=== PATIENT | male | born 1995 | race Caucasian/White ===

== ENCOUNTER 2016-06-17 17:30 | Inpatient (IN) | payer OTHER ==
--- NOTE | ~2016-06-17 | IDS ---
Interim Discharge Summary [facility] [address] [place]. [address] NAME: QIANA JACKSON : [birth year] STATUS : ADM IN [facility]#: [id number] AGE: 20 ADM/REG DATE : 06/17/16 MR#: [id number] REPORT SERV DATE: 06/20/16 DICTATED BY: MOIRA MONTIEL DATE: 06/20/16 REPORT STATUS : Draft TRANSCRIBED BY: MODL DATE: 06/20/16 ADMISSION DATE: 06/17/2016 DISCHARGE DATE: REASON FOR ADMISSION: Direct admission by Dr. Johnson's office for concern for possible urosepsis. HISTORY OF PRESENT ILLNESS: Please refer to my H and P on 06/17/2016 for complete details on the patient's admission. In brief, the patient was admitted as a direct admission for evaluation for urosepsis. HOSPITAL COURSE: The patient had uncomplicated hospital course. 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 The patient, finally was able to get a followup appointment with Dr. Johnson who evaluated him and was concerned for a concern for developing urosepsis, and the patient was admitted directly for management and evaluation for this issue. On the day of admission, the patient was nontoxic appearing and I did not have any labs or vitals. I decided to hold any antibiotics until further data could justify the use of antibiotics. Routine labs did not show any concern for infection. However, CT scan of his abdomen and pelvis showed severe cystitis. Given the findings of the CAT scan along with his concerns for foul- smelling urine and concentrated urine, the decision was made to go ahead and treat with IV antibiotics. Urine culture has so far grown out over 100,000 colonies gram-negative bacilli. He does have a significant history of colonization of Pseudomonas that was susceptible to Zosyn. He has been on Zosyn now for three days. We are waiting for final urine cultures and we will also test him for fosfomycin. He has been afebrile without leukocytosis. He has been requesting IV Dilaudid every day and I have been declining his request. He has been having multiple bowel movements secondary to aggressive bowel regimen with Movantik, Dulcolax, Colace, and MiraLAX. We are going to start backing off on that, but we will continue his Movantik and Colace. Follow disposition per Dr. Victor, who will assume care of this patient on 06/21. However, anticipate discharging the patient home soon once we have the final urine culture result. INTERIM DIAGNOSES: 1. Severe cystitis on CT scan. 2. Probable complicated urinary tract infection secondary to self catheterization from a neurogenic bladder. 3. Constipation, likely opioid induced. 4. Chronic pain, dependent on narcotics. 5. Nausea, now resolved. 6. Cerebral palsy. PROCEDURES: Include CT scan of the abdomen and pelvis with IV contrast. Interim Discharge Summary [address] [address] NAME: QIANA JACKSON : [birth year] STATUS : ADM IN [facility]#: [id number] AGE: 20 ADM/REG DATE : 06/17/16 MR#: [id number] REPORT SERV DATE: 06/20/16 DICTATED BY: MOIRA MONTIEL DATE: 06/20/16 REPORT STATUS : Draft TRANSCRIBED BY: JOSE DATE: 06/20/16 JEFERSON/JOSE Moira Montiel MD / [id number] CC: Miora Montiel MD Daily,Ryan
--- NOTE | ~2016-06-17 | DS ---
Discharge Summary [facility] [address] [place]. [address] NAME: QIANA JACKSON : [birth year] STATUS : DIS IN PAT#: [id number] AGE: 20 ADM/REG DATE : 06/17/16 MR#: [id number] REPORT SERV DATE: 06/23/16 DICTATED BY: ISI DOLAN DATE: 06/22/16 REPORT STATUS : Draft TRANSCRIBED BY: JOSE DATE: 06/22/16 ADMISSION DATE: 06/17/2016 DISCHARGE DATE: 06/22/2016 DIAGNOSES: 1. Severe cystitis. 2. Urinary tract infection with chronic self-catheterization. 3. Opioid-induced constipation. 4. Pain management, chronic. 5. History of cerebral palsy. FOLLOWUP: The patient is to follow up with the primary care physician in one week for repeat urinalysis. HOSPITALIST: Dr. Sunil Montiel and Dr. Dolan. DISCHARGE MEDICATION: Bisacodyl 5 mg p.o. daily p.r.n., Valium 10 mg p.o. b.i.d. per home dose, Movantik 25 mg p.o. daily, Lyrica 200 mg p.o. b.i.d., Florastor one cap p.o. b.i.d., Dilaudid 4 mg p.o. t.i.d. p.r.n., Bactrim DS one tab p.o. b.i.d. for five days, and fosfomycin 3 g p.o. daily for one dose. Please refer to discharge MAR for further details. HOSPITAL COURSE: Please see H and P and interim summary per Dr. Sunil Montiel. This is a 20 years old male with a past medical history of cerebral palsy but very functional with also history of recurrent urinary tract infections with self-catheterization. The patient was directly admitted from primary care's office for suspected sepsis secondary to urinary tract infection. The patient was found to have a complicated urinary tract infection. He was admitted to the Hospitalist Service, initially seen by Dr. Sunil Montiel. He was treated for opioid induced constipation and was treated with Movantik and stool softeners by Dr. Montiel, who also wrote a prescription for Movantik due to the patient's good response to treatment. He was found to have a complicated urinary tract infection with cystitis, had findings of ESBL and Providencia in the urine. Blood cultures were no growth to date. Also, the patient was continued on probiotic. The pharmacy performed sensitivities, found the patient to be sensitive to fosfomycin, therefore, the patient was transitioned off IV antibiotics to oral with fosfomycin for which he will receive one dose since the patient has completed a five day treatment of IV antibiotics and also we will continue with oral Bactrim for completion of urinary tract infection treatment. According to the patient's mother, the patient does not have any history of allergies to sulfa. The patient and mother were informed to follow up with the primary care physician for repeat urinalysis after completion of antibiotics. The patient was discharged home in stable condition to follow up as an outpatient. [facility] Discharge Summary [address] [address] NAME: QIANA JACKSON : [birth year] STATUS : DIS IN PAT#: [id number] AGE: 20 ADM/REG DATE : 06/17/16 MR#: [id number] REPORT SERV DATE: 06/23/16 DICTATED BY: ISI DOLAN DATE: 06/22/16 REPORT STATUS : Draft TRANSCRIBED BY: JOSE DATE: 06/22/16 Isi Dolan M.D. / [id number] CC: Gregg Huggins M.D.
--- NOTE | ~2016-06-17 | HP ---
History And Physical [facility] [address] [facility] [place]. [address] NAME: JUAN M JACKSON : [birth year] STATUS : ADM IN [facility]#: [id number] AGE: 20 ADM/REG DATE : 06/17/16 MR#: [id number] REPORT SERV DATE: 06/17/16 DICTATED BY: MOIRA MONTIEL DATE: 06/17/16 REPORT STATUS : Draft TRANSCRIBED BY: MODDouglas DATE: 06/17/16 DATE OF ADMISSION: 06/17/2016 REASON FOR ADMISSION: Direct admission from Dr. Johnson's office for concern for sepsis secondary to urinary tract infection. CHIEF COMPLAINT: "My urine has been foul smelling and burning." HISTORY OF PRESENT ILLNESS: A 20-year-old white male with a history of cerebral palsy, well known to the Hospitalist Service as he has had multiple numerous admissions for presumed urinary tract infection along with abdominal pain secondary to constipation. The patient had finally followed up with his PCP Dr. Johnson in the clinic today. His care is being mostly handled by his grandfather now as his grandmother is not well. Grandfather said that they stopped doing self-catheterizations because he was instructed to from previous physician; however, the patient and the grandfather noted that Juan M's urine was foul smelling and Juan M admitted to burning sensation which is new for him. He denies any fever or chills. He has not had a bowel movement within a week. His grandfather said that he had a couple doses of Dulcolax which seemed to help a little bit. The patient is complaining of abdominal pain. The patient requested to speak to me privately, and when I excused the grandfather from the room his question was if he could have any IV Dilaudid and I made it clear to him that we will not be giving him IV pain medicine, but we will be happy to continue his home regimen of oral Dilaudid. We can accommodate him by giving him some IV antiemetics if needed and he was agreeable to that plan. REVIEW OF SYSTEMS: As per HPI. Otherwise, 10-point system were reviewed and are negative. PAST MEDICAL HISTORY: Cerebral palsy; paraplegia, using a wheelchair; recurrent UTI with chronic Pseudomonas colonization; neurogenic bladder, off and on self catheterization; history of chronic bilateral hydronephrosis; Clostridium difficile colitis; bladder stones; reflux; narcotic-induced constipation; chronic pain, dependent on narcotics. PAST SURGICAL HISTORY: Suprapubic catheter insertion and removal, colostomy reversal, intact rectal surgery, multiple back surgeries, eye and ear surgery, right femoral fracture. SOCIAL HISTORY: Occasional cigarette smoking. Lives with his grandparents. No alcohol or illicit drug use. ALLERGIES: TO MORPHINE, LEVAQUIN, AND LATEX. MEDICATIONS: Dulcolax 5 mg p.r.n. constipation, Valium 10 mg twice a day, Dilaudid 4 mg three times a day p.r.n., Lyrica 200 mg twice a day. FAMILY HISTORY: Grandfather has hypertension. PHYSICAL EXAMINATION: History And Physical [address] [address] NAME: JUAN M JACKSON : [birth year] STATUS : ADM IN [facility]#: [id number] AGE: 20 ADM/REG DATE : 06/17/16 MR#: [id number] REPORT SERV DATE: 06/17/16 DICTATED BY: MOIRA MONTIEL DATE: 06/17/16 REPORT STATUS : Draft TRANSCRIBED BY: JOSE DATE: 06/17/16 VITAL SIGNS: Pending. GENERAL: The patient is nontoxic, pleasant, cooperative, in no acute distress, alert and oriented x3. HEENT: Normocephalic and atraumatic head. Extraocular muscles are intact. Oropharynx is clear. No scleral icterus. CARDIAC: Regular rhythm. No murmurs, rubs, or gallops. PULMONARY: Clear to auscultation bilaterally. No wheezes, rhonchi, or crackles. ABDOMEN: Soft, nondistended. Positive bowel sounds. There is a wound overlying around the periumbilical area which has been there for about four months. SKIN: Warm and dry. MUSCULOSKELETAL: He does have some chronic contractures of his lower extremities. NEUROLOGICAL: He is paraplegic. PSYCHIATRIC: The patient is cooperative. Mood is appropriate. SKIN: Warm and dry. LABORATORY DATA: Pending. IMPRESSION: 1. Presumed complicated urinary tract infection secondary to self-catheterization, neurogenic bladder. 2. Chronic pain, dependent on narcotics. 3. Opioid-induced constipation. 4. Cerebral palsy. 5. Neurogenic bladder. PLAN: Plan is to do IV fluids. We will obtain a CBC, CMP, urinalysis, and culture, procalcitonin and lactic acid, aggressive laxatives. Given the patient that the patient has frequent admissions with colonized UTIs and is nontoxic appearing, we will hold off on antibiotics until we have further data to support the diagnosis of urinary tract infection, but of course, the patient decompensates, and we will start him on broad-spectrum IV antibiotics. JEFERSON/JOSE Moira Montiel MD / [id number] CC: MD Ryan Merlos MD
[~2016-06-17 17:30] MED LIST: AUG875 PO; AZO-TABS95 MG PO; BACDS PO; BACLOFEN20 MG PO; BEN25 PO; BENADRYL 50 MG50 MG PO; BIST PO; CEFT2 PO; CEFT5 PO; CONSTULOSE PO; CORTEF20 MG; CORTISPORIN11 OT; DIL2TAB; DIL2TAB PO; DIL4TAB PO; DILAUDID8 MG PO; DITRO5 PO; DOCUSOFT S100 MG PO; DSS PO; DULCOLAX STOOL100 MG PO; DURA25 TOP; ENDOCET1 TA3 PO; ENULOSE PO; EX-LAX PO; FLORASTOR250 MG PO; ICY HOT OINTMENT TOP; ICY HOT16 % TOP; INVANZ1 GM IV; LYRICA100 MG PO; LYRICA150 MG PO; LYRICA200 MG PO; LYRICA75 PO; MACROBID PO; MACRODANTIN 10100 MG PO; MIRALAXPKT PO; MOVANTIK25 MG PO; MVI PO; NEUR300 PO; NEUR600 PO; NICODERM C14 MG/24 H TOP; NORCO1 TAB PO; OMNICEF300 PO; OXYCODONE PO; OXYCON10 PO; P20 PO; PCET PO; PERCOCET1 TA4 PO; PHENERGAN PO; PR12.5 PO; PR25 PO; RANITIDINE300 MG PO; REG5 PO; RX EAR DROPS OT; SENTAB PO; SEPTRA DS1 TAB PO; T3 PO; TOBRAMYCIN80 MG/2 ML IV; TYLENOL 8 HR650 MG PO; V5 PO; VALIUM10 MG PO; VANCOCIN HCL125 MG PO; ZANTAC 150 PO; ZANTAC150 MG PO; ZANTAC300 MG PO; ZOFRAN4 PO; ZOFRAN8 PO; [UNRECOGNIZED DRUG - OTHER] OT; [UNRECOGNIZED DRUG - OTHER] OT; [UNRECOGNIZED DRUG - REMARK] PO
[2016-06-17] MEDS ORDERED: BIST PO (17:59)
[2016-06-17 19:38] LABS: BASOPHILS 0.2 %; BASOPHILS ABSOLUTE 0.02 10/3/uL (0.0-0.16); EOSINOPHILS 3.7 %; EOSINOPHILS ABSOLUTE 0.31 10/3/uL (0.0-0.53); HEMATOCRIT 40.4 % (40.0-51.0); HEMOGLOBIN 13.8 g/dL (13.6-17.8); IMMATURE GRANULOCYTES 0.6 %; IMMATURE GRANULOCYTES ABSOLUTE 0.05 10/3/uL (0.0-0.11); LYMPHOCYTES 40.6 %; MANUAL DIFF NO %; MEAN CORPUS HGB CONC 34.2 g/dL (32.0-36.0); MEAN CORPUSCULAR HEMOGLOB 28.8 pg (26.0-34.0); MEAN CORPUSCULAR VOLUME 84.2 fL (80-100); MEAN PLATELET VOLUME 9.5 fL (9.2-13.0); MONOCYTES 6.1 %; MONOCYTES ABSOLUTE 0.51 10/3/uL (0.21-1.20); NEUTROPHILS 48.8 %; NEUTROPHILS ABSOLUTE 4.08 10/3/uL (2.02-8.40); PLATELET COUNT 227 10/3/uL (150-400); RBC DISTRIBUTION WIDTH 13.7 % (12.0-16.0); WHITE BLOOD CELLS 8.4 10/3/uL (4.5-10.5)
[2016-06-17 19:47] LABS: INTERNATIONAL NORMAL RATI 1.1 UNITS (-); PROTIME (NOT ORD) 13.8 SEC (12.0-14.5)
[2016-06-17 19:48] LABS: PARTIAL THROMBO TIME 31.3 SEC (22.5-37.2)
[2016-06-17 19:59] LABS: A/G RATIO 0.7 (0.7-1.9); ALBUMIN 3.2 G/DL (3.5-5.0); BUN (BLOOD UREA NITROGEN) 12 MG/DL (6-23); CALCIUM, SERUM 9.1 MG/DL (8.5-10.4); CHLORIDE, SERUM 106 MMOL/L (96-112); CO2 (CARBON DIOXIDE) 27 MMOL/L (24-34); GFR AFRICAN AMERICAN 155 ML/MIN (>=60); GFR NON AFRICAN AMERICAN 134 ML/MIN (>=60); GLOBULIN 4.7 G/DL (2.5-4.1); POTASSIUM, SERUM 3.7 MMOL/L (3.5-5.3); SGOT(AST) 9 U/L (5-40); SGPT(ALT) 28 U/L (5-65); SODIUM, SERUM 143 MMOL/L (135-148); TOTAL BILIRUBIN 0.2 MG/DL (0-1.2); TOTAL PROTEIN 7.9 G/DL (6.0-8.5)
[2016-06-17 20:01] LABS: ALKALINE PHOSPHATASE 103 U/L (45-117); GLUCOSE, SERUM 87 MG/DL (60-99); PHOSPHORUS, SERUM 4.8 MG/DL (2.5-4.5)
[2016-06-17 20:31] LABS: PROCALCITONIN 0.05 ng/mL (<0.5)
[2016-06-17 21:44] LABS: ASCORBIC ACID (UR NOT ORDER) NEG (NEG); BILIRUBIN, URINE NEGATIVE (NEG); KETONE, URINE NEGATIVE (NEG); LEUKOCYTE ESTERASE(NOT OR SMALL (NEG); WBC (NOT ORDERED) (RFLEX) 20 (0-5)
[2016-06-17 22:41] LABS: AMPHETAMINES (NOT ORD) NEG (NEG); BARBITURATES (NOT ORDERED NEG (NEG); BENZODIAZEPINES (NOT ORD) POS (NEG); CANNABINOIDS (THC) NEG (NEG); COCAINE (NOT ORDERED) NEG (NEG); OPIATES POS (NEG); PHENCYCLIDINE(PCP) NEG (NEG); TRICYCLICS NEG (NEG)
[2016-06-18 05:39] LABS: BASOPHILS 0.3 %; BASOPHILS ABSOLUTE 0.02 10/3/uL (0.0-0.16); EOSINOPHILS 4.4 %; EOSINOPHILS ABSOLUTE 0.35 10/3/uL (0.0-0.53); HEMATOCRIT 38.6 % (40.0-51.0); HEMOGLOBIN 12.8 g/dL (13.6-17.8); IMMATURE GRANULOCYTES 0.5 %; IMMATURE GRANULOCYTES ABSOLUTE 0.04 10/3/uL (0.0-0.11); LYMPHOCYTES 42.3 %; LYMPHOCYTES ABSOLUTE 3.37 10/3/uL (0.67-4.30); MEAN CORPUS HGB CONC 33.2 g/dL (32.0-36.0); MEAN CORPUSCULAR HEMOGLOB 28.4 pg (26.0-34.0); MEAN CORPUSCULAR VOLUME 85.8 fL (80-100); MEAN PLATELET VOLUME 9.7 fL (9.2-13.0); MONOCYTES 7.7 %; MONOCYTES ABSOLUTE 0.61 10/3/uL (0.21-1.20); NEUTROPHILS 44.8 %; NEUTROPHILS ABSOLUTE 3.58 10/3/uL (2.02-8.40); PLATELET COUNT 218 10/3/uL (150-400); RBC DISTRIBUTION WIDTH 13.9 % (12.0-16.0)
[2016-06-18 05:40] LABS: MANUAL DIFF NO %
[2016-06-18 05:57] LABS: BUN (BLOOD UREA NITROGEN) 13 MG/DL (6-23); CHLORIDE, SERUM 107 MMOL/L (96-112); CO2 (CARBON DIOXIDE) 27 MMOL/L (24-34); CREATININE 0.72 MG/DL (0.70-1.30); GFR AFRICAN AMERICAN 153 ML/MIN (>=60); GFR NON AFRICAN AMERICAN 132 ML/MIN (>=60); GLUCOSE, SERUM 90 MG/DL (60-99); PHOSPHORUS, SERUM 4.5 MG/DL (2.5-4.5); SODIUM, SERUM 142 MMOL/L (135-148)
[2016-06-18 06:00] LABS: CALCIUM, SERUM 8.1 MG/DL (8.5-10.4); POTASSIUM, SERUM 4.5 MMOL/L (3.5-5.3)
[2016-06-22] MEDS ORDERED: DSS PO (14:08)
[2016-06-22] MEDS ORDERED: DIL4TAB PO (14:09)
[2016-06-22] MEDS ORDERED: BACTRIM DS1 TAB PO (14:09)
[2016-06-22] MEDS ORDERED: FLORASTOR250 MG PO (14:09)
[2016-06-22] MEDS ORDERED: MIRALAX POWDER1 PKT PO (14:10)
[2016-06-22] MEDS ORDERED: MOVANTIK25 MG PO (14:10)
[2016-06-22] MEDS ORDERED: MONUROL PO (14:10)
[2016-10-17] MEDS ORDERED: NEUR300 PO (05:12)
[2016-10-17] MEDS ORDERED: ZANTAC150 MG PO (05:12)
[2016-10-19] MEDS ORDERED: CEFT5 PO (13:29)
[2016-10-19] MEDS ORDERED: DIL4TAB PO (13:30)
[2016-10-19] MEDS ORDERED: PR25 PO (13:32)
== END 2016-06-22 16:45 | disposition home or self-care (01) | DRG 699 ==
LOC: 5SO 17:30
PROVIDERS: Internal Medicine
DX: T83.518A Infection and inflammatory reaction due to other urinary catheter, initial encounter (principal); N39.0 Urinary tract infection, site not specified; F11.20 Opioid dependence, uncomplicated; G80.8 Other cerebral palsy; N31.9 Neuromuscular dysfunction of bladder, unspecified; G89.29 Other chronic pain; K59.03 Drug induced constipation; T40.0X5A Adverse effect of opium, initial encounter; Z90.49 Acquired absence of other specified parts of digestive tract; Z98.890 Other specified postprocedural states; Z88.5 Allergy status to narcotic agent; Z88.1 Allergy status to other antibiotic agents; Z91.040 Latex allergy status; Z82.49 Family history of ischemic heart disease and other diseases of the circulatory system; Z99.3 Dependence on wheelchair; F17.210 Nicotine dependence, cigarettes, uncomplicated
CPT/HCPCS: 74177; 80048; 80053; 80305; 81001; 83605; 83735; 84100; 84145; 85025; 85610; 85730; 87040; 87077; 87086; 87184; 87186; A9270-GY; J2543; J2550; Q9967